=== PATIENT | male | born 1985 | race Hispanic/Latino ===

== ENCOUNTER 2020-04-04 06:07 | Outpatient (CLI) | payer BC, OTHER ==
[2020-04-04 16:10] LABS: #Eosinphils 0.3 thou/uL (0.0-0.7); #Lymphocytes 3.4 thou/uL (1.20-3.40); #Monocytes 0.7 thou/uL (0.11-0.59); #Neutrophils 3.7 thou/uL (1.40-6.50); %Basophils 0.3 % (0.0-1.0); %Eosinophils 3.3 % (0.0-10.0); %Lymphocytes 42.4 % (21.0-51.0); %Monocytes 8.2 % (0.0-10.0); %Neutrophils 45.8 % (42.0-75.0); Hemoglobin 15.2 g/dL (14.0-18.0); Mean Corpuscular HGB CONC 33.3 g/dL (32.0-36.0); Mean Corpuscular Hemoglobin 30.5 pg (27.0-31.0); Mean Corpuscular Volume 91.7 fL (78.0-98.0); Mean Platelet Volume 9.2 fL (7.4-10.4); Platelet Count 269 thou/uL (130-400); RBC Distribution Width 11.8 % (11.5-14.5); Red Blood Cell (RBC) Count 4.97 mill/uL (4.70-6.10); White Blood Cell (WBC) Count 8.1 thou/uL (4.8-10.8)
[2020-04-04 16:39] LABS: Anion Gap 15 mmol/L (10-20); BUN (Urea Nitrogen) 12 mg/dL (8.9-20.6); Calc. Creatinine Clearance 0 mL/min (70-130); Calcium 9.4 mg/dL (7.8-10.44); Carbon Dioxide 23 mmol/L (22-29); Chloride 105 mmol/L (98-107); Estimated GFR-MDRD 86; Glucose 86 mg/dL (70-105); Potassium 4.4 mmol/L (3.5-5.1); Sodium 139 mmol/L (136-145)
[2020-04-05 13:22] LABS: SARS-CoV-2 MS2 Positive; SARS-CoV-2 N Gene Negative; SARS-CoV-2 S Gene Negative; SARS-CoV-2 by NAA Not Detected (NotDetected); SARS-CoV-2 orf1ab Negative
== END 2020-04-04 06:08 | disposition home or self-care (01) ==
LOC: LABBT 06:07
PROVIDERS: ATTEND Specialist
DX: Z01.812 Encounter for preprocedural laboratory examination (principal); Z20.828 Contact with and (suspected) exposure to other viral communicable diseases; K42.9 Umbilical hernia without obstruction or gangrene; K40.90 Unilateral inguinal hernia, without obstruction or gangrene, not specified as recurrent; K59.00 Constipation, unspecified
CPT/HCPCS: 80048; 85025; 87635; U0003

== ENCOUNTER 2020-04-07 07:23 | Day surgery (SDC) | payer BC ==
[2020-04-06 09:28] VITALS: BMI 30.8
[2020-04-07] MEDS ORDERED: Ketorolac Tromethamine 30 MG/ML VIAL ONE (07:51)
[2020-04-07] MEDS ORDERED: Acetaminophen 500 MG TAB ONE (07:51)
[2020-04-07] MEDS ORDERED: Bupivacaine/Epinephrine 0.25% 30 ML VIAL ONE ×2 (08:41→08:42)
[2020-04-07] MEDS ORDERED: Lidocaine 1% w/Epinephrine 1:100K 20 ML VIAL ONE (08:43)
[2020-04-07] MEDS ORDERED: Bupivacaine 0.25% HCL 30 ML VIAL ONE (08:46)
[2020-04-07] MEDS ORDERED: Glycopyrrolate 0.2 MG/ML 5 ML SYRINGE ONE (09:53)
[2020-04-07] MEDS ORDERED: Dexamethasone 20 MG/5 ML VIAL ONE (09:53)
[2020-04-07] MEDS ORDERED: Rocuronium Bromide 10 MG/ML (10ML VIAL) ONE (09:53)
[2020-04-07] MEDS ORDERED: PROPOFOL 200 MG/20 ML VIAL ONE (09:53)
[2020-04-07] MEDS ORDERED: diphenhydrAMINE 50 MG/ML VIAL ONE (09:53)
[2020-04-07] MEDS ORDERED: EPHEDRINE 25 MG/5 ML SYRINGE ONE (09:53)
[2020-04-07] MEDS ORDERED: Ondansetron PF 4 MG/2 ML Vial ONE (09:53)
[2020-04-07] MEDS ORDERED: Fentanyl 250 MCG/5 ML VIAL ONE (10:23)
[2020-04-07] MEDS ORDERED: Levofloxacin 500 mg/D5W 100 ml Premix Bag ONE (11:18)
[2020-04-07] MEDS ORDERED: Promethazine HCl 25 MG/ML VIAL ONE (13:28)
[2020-04-07] MEDS ORDERED: Fentanyl 100 MCG/2 ML VIAL ONE (13:33)
--- NOTE | 2020-04-08 00:18 | OP ---
DATE OF PROCEDURE: 04/07/2020 SERVICE: Urology. Intraoperative consult obtained from Dr. Clemente Olmos. PREOPERATIVE DIAGNOSIS: Inguinal hernia and umbilical hernia. 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 BRIEF HISTORY AND REASON FOR CONSULTATION: Mr. Bai is a 34-year-old male who is currently in the operating room for an inguinal and umbilical hernia repair via robotic approach with Dr. Olmos. He had not endorsed any previous urinary problems or urinary issues. Attempts at placing a Norton catheter at the start of the surgery was met with resistance with blood then coming at the meatus. I was then consulted for further assistance and placement of the catheter. DESCRIPTION OF PROCEDURE: After identification of the patient's band and verification of the patient's identity, a flexible cystoscope was brought in and used to cannulate into the urethra. This was performed up to the level of the bulbar urethra where it was noted the patient had a fairly large false passage. The true lumen was identified nearby and found to be completely stenosed at approximately a 4-5-Polish diameter. An Amplatz Super Stiff wire was able to be passed through the lumen of the stricture and into the bladder. The cystoscope was removed and Teri dilators were used sequentially from 10-Polish up to 20-Polish, passed sequentially over the Super Stiff wire into the bladder. After the 20-Polish dilation, the cystoscope was reintroduced through the urethra alongside the Super Stiff wire and cannulated through the urethra into the prostate and into the bladder. The bladder was grossly unremarkable. The prostate was not very hypertrophic. The false passage was more pushed the side now with the dilation going to the true lumen. The cystoscope was then removed and a 16-Polish [place] tip catheter was placed with ease over the Super Stiff wire into the bladder. The Super Stiff wire was then removed and 10 mL of sterile water placed into the balloon. The catheter was left to gravity drainage. Dr. Olmos then performed his portion of the surgery, which will be dictated separately in his operative report. For my portion of the procedure, complications none. ESTIMATED BLOOD LOSS: Minimal. RETAINED TUBES AND DRAINS: 16-Polish [place] tip catheter to gravity drainage. SPECIMENS: None. DISPOSITION: The patient will need to keep his catheter in for 10-14 days to allow for adequate healing of his urethra. He remains at high risk for recurrent stricture disease. I will handle this as an outpatient after his void trial and we can discuss definitive urethral reconstruction if his stricture recurs. Job ID: [id number]
--- NOTE | 2020-04-08 15:26 | OP ---
DATE OF PROCEDURE: 04/07/2020 PREOPERATIVE DIAGNOSES: Right inguinal hernia, umbilical hernia. POSTOPERATIVE DIAGNOSES: Right inguinal hernia, umbilical hernia with very large cord lipoma and indirect hernia, and urethral stricture. PROCEDURES PERFORMED: Robotic right inguinal hernia repair, umbilical hernia repair with mesh, urological procedure per Dr. Presley Katz dictated separately. INDICATIONS FOR PROCEDURE: The patient is a 34-year-old male. He presented with an enlarging umbilical hernia that was symptomatic. He had a right inguinal hernia on examination. It was decided to repair both of these under the same anesthetic. DESCRIPTION OF OPERATION: Informed consent was obtained. The patient was taken to the operating room, where general anesthesia was obtained with the patient in supine position. Norton catheter placement was attempted, but was found to be impossible and urologic consultation was obtained. Dr. Katz graciously presented immediately and addressed apparent stricture with a cystoscopy, stricture dilatation, and placement of the catheter. The patient was found to have developed a substantial false passage during Norton catheter placement at the location of a significant urethral stricture. After Norton catheter was placed, abdomen was prepped with ChloraPrep and draped in sterile fashion. Local anesthetic was infiltrated using a mixture of 1% lidocaine with epinephrine and 0.25% Marcaine. A transverse supraumbilical incision was created. Dissection was carried through skin and subcutaneous tissue. Dissection was carried down to the umbilical hernia sac. The contents were found to be fatty in nature. I, therefore, dissected down through this into the peritoneal cavity and passed a Veress needle through this. Pneumoperitoneum was established using carbon dioxide up to pressure of 15 mmHg. An 11 mm balloon-tipped trocar port was placed. Robotic camera was passed through this and under direct vision, two additional 8 mm robotic ports were placed at the supraumbilical level on either side of midline. The robot was docked to the 3 ports and the camera, and operation was continued from the robotic console. Attention was turned inferiorly. There was noted to be a minimal peritoneal inversion in the right inguinal area. A transverse incision was created several centimeters above the hernia, and a preperitoneal dissection was carried inferiorly. Medially, the dissection was carried down to the pubic tubercle. Laterally, the iliopubic tract was fully dissected. Within the central portion, I carefully dissected the cord structures. There was a smallish indirect hernia; however, there was a very large cord lipoma. The cord lipoma was fully reduced through the hernia defect. The peritoneum was carefully dissected off the cord structures posteriorly. A large 3DMax mesh patch was obtained and placed in the preperitoneal space, where it was secured to the pubic tubercle and to the anterior abdominal wall with two separate sutures of 2-0 Vicryl. The peritoneum was then closed with a running suture of 3-0 Stratafix. The cord lipoma was partially removed from within the abdomen at the end of the operation. The remainder of it was carefully externalized to the mesh. The lateral ports were removed under direct vision, and pneumoperitoneum was evacuated. Attention was turned to the umbilical hernia. The supraumbilical incision was extended somewhat to allow open dissection. The umbilicus was then dissected off the underlying hernia sac and the fascial defect. The defect was noted to be about 1.5 cm. The fascia was dissected anteriorly and posteriorly to create a preperitoneal plane. A 4.3 cm Ventralex mesh patch was obtained and placed within the preperitoneal space. The tails of the patch were pulled snug against the posterior aspect of the fascia, and the tails were secured to the anterior fascia superiorly and inferiorly with two interrupted sutures of 0 Prolene. The lateral aspects of the defect were closed with interrupted sutures of 0 Prolene as well. The umbilicus was secured down to the fascia with two interrupted sutures of 3-0 Vicryl. The remainder of the wound was closed in layers with 3-0 and 4-0 Monocryl. Dermabond was placed externally. A sterile compression dressing was placed using cotton balls and a Tegaderm. There were no complications during the surgical portion of procedure. Because of the false passage that had been created, a Norton catheter was left in place under the direction of Dr. Katz and the patient will follow up with Dr. Katz as an outpatient. Job ID: [id number]
== END 2020-04-07 15:52 | disposition home or self-care (01) ==
LOC: SDC 07:23
PROVIDERS: ATTEND Specialist
PROC: 0T7D8ZZ Dilation of Urethra, Via Natural or Artificial Opening Endoscopic (ICD-10-PCS; principal; 2020-04-07)
PROC: 0YU54JZ Supplement Right Inguinal Region with Synthetic Substitute, Percutaneous Endoscopic Approach (ICD-10-PCS; principal; 2020-04-07)
PROC: 0WUF0JZ Supplement Abdominal Wall with Synthetic Substitute, Open Approach (ICD-10-PCS; principal; 2020-04-07)
DX: K40.90 Unilateral inguinal hernia, without obstruction or gangrene, not specified as recurrent (principal); K42.9 Umbilical hernia without obstruction or gangrene; N35.912 Unspecified bulbous urethral stricture, male; D17.6 Benign lipomatous neoplasm of spermatic cord; K59.00 Constipation, unspecified
CPT/HCPCS: C1781; J0690; J1100; J1200; J1885; J1956; J2405; J2550; J2704; J3010; S0020

== ENCOUNTER 2020-04-23 19:42 | Observation (INO) | payer BC, OTHER ==
[2020-04-23] MEDS ORDERED: Ondansetron PF 4 MG/2 ML Vial ONE ×2 (20:05→22:56)
[2020-04-23] MEDS ORDERED: cefTRIAXone\\ROCEPHIN 1 GM VIAL ONE (20:05)
[2020-04-23] MEDS ORDERED: Morphine 4 MG/ML VIAL ONE ×2 (20:05→22:45)
[2020-04-23 20:29] LABS: #Basophils 0.1 thou/uL (0.0-0.2); #Eosinphils 0.2 thou/uL (0.0-0.7); #Lymphocytes 3.3 thou/uL (1.20-3.40); #Monocytes 0.8 thou/uL (0.11-0.59); #Neutrophils 7.7 thou/uL (1.40-6.50); %Basophils 0.9 % (0.0-1.0); %Lymphocytes 27.4 % (21.0-51.0); %Monocytes 6.3 % (0.0-10.0); %Neutrophils 63.5 % (42.0-75.0); Hemoglobin 14.5 g/dL (14.0-18.0); Mean Corpuscular HGB CONC 35.7 g/dL (32.0-36.0); Mean Corpuscular Hemoglobin 31.9 pg (27.0-31.0); Mean Corpuscular Volume 89.5 fL (78.0-98.0); Mean Platelet Volume 7.7 fL (7.4-10.4); Platelet Count 338 thou/uL (130-400); RBC Distribution Width 11.6 % (11.5-14.5); Red Blood Cell (RBC) Count 4.52 mill/uL (4.70-6.10); White Blood Cell (WBC) Count 12.1 thou/uL (4.8-10.8)
[2020-04-23 20:46] LABS: ALT (SGPT) 12 U/L (8-55); AST (SGOT) 13 U/L (5-34); Alkaline Phosphatase 68 U/L (40-110); Anion Gap 14 mmol/L (10-20); BUN (Urea Nitrogen) 21 mg/dL (8.9-20.6); Bilirubin, Total 0.3 mg/dL (0.2-1.2); Calc. Creatinine Clearance 0 mL/min (70-130); Calcium 8.8 mg/dL (7.8-10.44); Carbon Dioxide 22 mmol/L (22-29); Chloride 102 mmol/L (98-107); Estimated GFR-MDRD 64; Glucose 89 mg/dL (70-105); Sodium 134 mmol/L (136-145)
--- NOTE | 2020-04-23 21:10 | ULT ---
US Testicular W Doppler History: Pain Comparison: None. Findings: Real-time grayscale, color and spectral analysis of the testicles was performed. The testicular echotexture and vascularity is normal. Small epididymal head cyst on the left. Posterior to left testicle is a fluid collection with peripheral irregular joshua. This fluid collecti on measures up to 8 cm in size. No significant heterogeneity of the fluid itself. Impression: Irregular thick-walled fluid collection posterior to the left testicle measures sequelae of prior infection and resolving abscess. Resorbing hematoma is also possibility.
[2020-04-23 21:47] LABS: Bacteria/HPF None Seen HPF (None Seen); Bilirubin Negative (Negative); Blood, Urine 2+ (Negative); Clarity Clear (Clear); Glucose, Urine (Dipstick) Normal (Negative); Ketone, Urine Negative (Negative); Leukocyte 75 Leu/uL (Negative); Nitrite Negative (Negative); Protein, Urine (Dipstick) 70 mg/dL (Neg-Trace); RBC/HPF 21-50 HPF (0-3); Specific Gravity, Urine 1.031 (1.002-1.036); Squamous Epithelial 0-3 HPF (0-3); Urobilinogen Normal mg/dL (Less than 2); pH, Urine 6.5 (5.0-9.0)
[2020-04-23 21:59] LABS: Sperm/HPF 4+ HPF (None Seen)
[2020-04-24 00:09] VITALS: BMI 31.8
[2020-04-24] MEDS ORDERED: Morphine 4 MG/ML VIAL SLOW IVP PRN (00:22)
[2020-04-24] MEDS ORDERED: Ondansetron PF 4 MG/2 ML Vial IVP PRN ×2 (00:30→11:37)
[2020-04-24] MEDS ORDERED: Ondansetron ODT 4 MG TAB SL PRN (00:30)
[2020-04-24] MEDS: Sodium Chloride 0.9% 1,000 ML IV SCH ×4 (00:40→20:54)
[2020-04-24] MEDS ORDERED: FLU VACC QS2020-21(6MOS UP)/PF 60 MCG/0.5 ML SYRINGE IM ONE (09:00)
[2020-04-24] MEDS ORDERED: Fentanyl 100 MCG/2 ML VIAL SLOW IVP PRN (11:37)
[2020-04-24 12:12] LABS: SARS-CoV-2 MS2 Positive; SARS-CoV-2 N Gene Negative; SARS-CoV-2 S Gene Negative; SARS-CoV-2 by NAA Not Detected (NotDetected); SARS-CoV-2 orf1ab Negative
[2020-04-24 13:16] LABS: #Eosinphils 0.2 thou/uL (0.0-0.7); #Lymphocytes 2.6 thou/uL (1.20-3.40); #Monocytes 0.6 thou/uL (0.11-0.59); #Neutrophils 2.9 thou/uL (1.40-6.50); %Basophils 0.6 % (0.0-1.0); %Lymphocytes 41.1 % (21.0-51.0); %Monocytes 8.8 % (0.0-10.0); %Neutrophils 46.5 % (42.0-75.0); Hemoglobin 13.9 g/dL (14.0-18.0); Mean Corpuscular HGB CONC 35.7 g/dL (32.0-36.0); Mean Corpuscular Hemoglobin 32.4 pg (27.0-31.0); Mean Corpuscular Volume 90.8 fL (78.0-98.0); Mean Platelet Volume 7.5 fL (7.4-10.4); Platelet Count 296 thou/uL (130-400); RBC Distribution Width 11.8 % (11.5-14.5); Red Blood Cell (RBC) Count 4.28 mill/uL (4.70-6.10); White Blood Cell (WBC) Count 6.2 thou/uL (4.8-10.8)
[2020-04-24 13:20] LABS: Hemoglobin A1c 5.4 % (4.0-6.0)
[2020-04-24 13:29] LABS: Anion Gap 11 mmol/L (10-20); BUN (Urea Nitrogen) 13 mg/dL (8.9-20.6); Calc. Creatinine Clearance 154 mL/min (70-130); Calcium 8.8 mg/dL (7.8-10.44); Carbon Dioxide 25 mmol/L (22-29); Chloride 106 mmol/L (98-107); Estimated GFR-MDRD 80; Glucose 84 mg/dL (70-105); Potassium 4.3 mmol/L (3.5-5.1); Sodium 138 mmol/L (136-145)
[2020-04-24] MEDS: cefTRIAXone\\ROCEPHIN 1 GM in Sodium Chloride 0.9% 100 ML IVPB SCH (14:09)
[2020-04-24] MEDS: Acetaminophen 325 MG TAB PO PRN (15:53)
--- NOTE | 2020-04-24 17:02 | HP ---
CHIEF COMPLAINT: Scrotal abscess/hematoma with intractable testicular pain. HISTORY OF PRESENT ILLNESS: The patient is a 34-year-old male who originally underwent a hernia repair on 04/07/[address] Olmos in the process of trying to pass the Norton. There was great difficulty encountered in the operating room such that Dr. Katz was consulted to come in and place a Norton. A urethral stricture was noted with only 5-mm of room for passage, so he dilated the patient's urethra and placed the catheter, and the patient subsequently was discharged home with a Norton in place. He followed up with Dr. Olmos the following week where his concerns for hernia repair were noted to be doing well, but he had a huge scrotal hematoma present with severe discomfort. The patient was referred back to Dr. Katz for care. He was placed on antibiotics and was planning subsequent followup care; however, the pain in the scrotum became unbearable. By the time he came back to the emergency room for evaluation, he was in tears and unable to tolerate the pain any further. He did not have fever, nausea, vomiting, or diarrhea, but Dr. Burgos was consulted to admit the patient for pain management, and urologist on-call was then contacted to provide urological care to the scrotal what appears to be scrotal abscess or hematoma by ultrasound. The ultrasound showed it to be approximately 8 cm in size. PAST MEDICAL HISTORY: Significant for borderline diabetes, hyperlipidemia. PAST SURGICAL HISTORY: He has no other past surgical history other than the aforementioned hernia repair per Dr. Olmos done on 04/07/2020 and then cystoscopy done that same day by Dr. Katz. PSYCHIATRIC HISTORY: None. SOCIAL HISTORY: Denies alcohol or drug use. He does currently smoke, but not very often. He is . ALLERGIES: HE HAS NO KNOWN DRUG ALLERGIES. MEDICATIONS ON ADMISSION: Were recently discontinued antibiotics such as Levaquin. REVIEW OF SYSTEMS: CONSTITUTIONALLY: He denies fever, chills, nausea, or vomiting. HEENT: Denies any lesions or drainage from eyes, ears, nose, or throat. CHEST: Denies dyspnea or cough. CARDIOVASCULAR: Denies palpitations or chest pain. GI: Has had waves of nausea, but no vomiting or diarrhea. : Admits to blood per urethra, but easily passes urine and what would be considered normal amounts. No anal blood. MUSCULOSKELETAL: Denies rashes or lesions. NEUROLOGIC: Has no trouble with mentation. He has had headaches since using the morphine for pain, but aside from that, no trouble with paresthesias or hyperesthesias. PHYSICAL EXAMINATION: At the time of admission, VITAL SIGNS: Blood pressure 111/76, pulse 75, respirations 16, O2 saturation 97% on room air, and he has been afebrile since admission. GENERAL: This is a well-developed, well-nourished, male, who is in mild to moderate testicular distress and pain. HEENT: Normocephalic, atraumatic. Pupils are equal, round, and reactive to light. Extraocular muscles are intact. TMs, nares, and pharynx are clear. NECK: Supple. Trachea midline. No mass. CHEST: Clear to auscultation. HEART: Regular rate and rhythm without murmur. ABDOMEN: Soft, nontender without organomegaly. Well-healed umbilical incisions from hernia repair noted. : Circumcised male with a huge ecchymotic scrotum that is tender to palpation. No palpable fever. RECTAL: Deferred. EXTREMITIES: Without clubbing, cyanosis, or edema. Normal range of motion present. SKIN: Without rashes or lesions aside from the area of the ecchymotic scrotum. NEUROLOGIC: Cranial nerves are intact. Sensory exam is grossly intact. Mental status is at baseline, unable to test gait and cerebellar function at this time. LABORATORY WORK: On admission shows WBCs elevated at 12.2, hemoglobin 14.5, hematocrit 40.5 with platelets at 338. Chemistry; sodium 134, potassium 4.0, chloride 102, CO2 of 22, BUN 21, with a creatinine of 1.29, a GFR 64. Lactic acid on admission 1.8. Liver functions normal. Urinalysis is positive for leukocyte esterase as well as blood and wbcs are 11 to 20. ASSESSMENT: 1. Testicular hematoma/abscess. 2. Intractable testicular pain. 3. Borderline diabetes. 4. Hyperlipidemia. PLAN: Will be pain management. We will continue the Rocephin that was begun in the emergency room. Urology has already been consulted to come see the patient for probable aspiration or open I and D. We will serially re-evaluate him and change his pain management from morphine to fentanyl due to adverse reactions with morphine. Job ID: [id number]
--- NOTE | 2020-04-24 21:18 | CON ---
DATE OF CONSULTATION: 04/24/2020 CHIEF COMPLAINT: 1. Left-sided testicular pain and swelling. 2. Dysuria. HISTORY OF PRESENT ILLNESS: Mr. 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 The patient has a history of a recent umbilical and right inguinal hernia repair performed by Dr. Olmos on 04/07/2020. The patient at the time of surgery had to have a Norton catheter inserted by Dr. Katz due to urethral stricture, which required dilation. The patient had a Norton catheter in place for 7 days; following that, returned to Dr. Katz's office. Later, had the catheter removed and was placed on Levaquin for possible infection due to complaint of testicular pain at that time on the left side. The patient's pain symptoms are contralateral to the side of his hernia repair. The patient states he completed his course of Levaquin on , 04/21/2020 and by 04/23/2020, the patient was having severe left-sided testicular pain and having difficulty walking. He noticed a large amount of swelling associated with his left testis. The patient presented to the emergency department, underwent ER evaluation. The patient was found to be afebrile, and ultrasound was obtained, which I have reviewed and shows a left-sided loculated hydrocele as well as some increased blood flow in the left epididymis to my reading. Right side appears benign. Both testes are free of evidence of tumor, mass, or other abnormality. There is no increased perfusion in either the left or right testis. REVIEW OF SYSTEMS: Negative x12 systems except for is noted. Testicular pain, swelling of left hemiscrotum and pain in the left epididymis. The patient has also had a slow urinary stream, which required recent dilation of the patient's known urethral stricture. PAST MEDICAL HISTORY: 1. Diabetes mellitus. 2. Borderline diabetic. 3. Hyperlipidemia. PAST SURGICAL HISTORY: The patient had a laparoscopic umbilical and right inguinal hernia repair on 04/07/2020. 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 No drug use. He is a current smoker, but rarely. CURRENT MEDICATIONS: None except for recent course of Levaquin. KNOWN ALLERGIES: No known drug allergies. PHYSICAL EXAMINATION: VITAL SIGNS: The patient has been afebrile since hospital admission. Current temperature is 97.5, pulse is 83, respirations 16, room air O2 saturations 94%, and blood pressure is 103/71. GENERAL: This is a pleasant, awake, alert, [place]ian-speaking male in no apparent distress. HEAD, EYES, EARS, NOSE, AND THROAT: Extraocular movements are intact. Sclerae are anicteric. Oropharynx is clear. NECK: Supple. LUNGS: Clear to auscultation bilaterally. CARDIAC: Regular rate and rhythm. ABDOMEN: Soft and nontender. There is an umbilical incision as well as additional laparoscopic incisions which are healing appropriately. Now, these appear to be infected. GENITOURINARY: The right hemiscrotum has not swollen or enlarged. There is some slight discoloration of the scrotal skin which would be expected after previous laparoscopic surgery. Phallus is without lesion. Urethral meatus appears adequate. He has no lesions along the course of the shaft of the penis. The left hemiscrotum is swollen. The left hemiscrotum appears tender to examination. Transillumination does show proper transillumination suggesting at least a portion of the patient's loculated hydrocele is a clear fluid like. LABORATORY STUDIES: The patient's white count at admission was marginally elevated at 12.1, now improved to 6.2 today. Hematocrit today is 38.9 with a hemoglobin of 13.9. Yesterday, there was an elevation of the patient's absolute neutrophil count 7700, this was improved to 2900, which is in the normal range. Microbiology; there is no growth at 12 hours in the patient's urine culture. Culture results remain pending. ASSESSMENT AND PLAN: 1. Left-sided reactive hydrocele with left epididymitis. The patient appears to be responding to intravenous Rocephin. There is a good chance that his urine will be covered by oral cephalosporin based on that finding that he is improved with 24 hours worth of Rocephin. 2. Urethral stricture disease. The patient was established with Dr. Katz. He has urethral stricture disease. The patient does not have incomplete bladder emptying at the present time based on ER evaluation with ultrasound showing less than 50 mL of retained urine postvoid. The patient and I discussed appropriate followup for early onset of obstructive voiding symptoms. He will follow up with Dr. Katz regarding that. 3. Pain symptoms markedly improved after 24 hours worth of antibiotics. The patient to be appropriate for discharge home probably within less than 24 hours once appropriate culture results are available for him. Consideration of cefprozil or Keflex based on antibiotic sensitivity. Job ID: [id number]
[2020-04-25 05:41] LABS: #Eosinphils 0.3 thou/uL (0.0-0.7); #Lymphocytes 2.6 thou/uL (1.20-3.40); #Monocytes 0.5 thou/uL (0.11-0.59); #Neutrophils 2.4 thou/uL (1.40-6.50); %Basophils 0.7 % (0.0-1.0); %Eosinophils 5.7 % (0.0-10.0); %Lymphocytes 44.5 % (21.0-51.0); %Monocytes 8.4 % (0.0-10.0); %Neutrophils 40.7 % (42.0-75.0); Hemoglobin 13.4 g/dL (14.0-18.0); Mean Corpuscular Hemoglobin 31.1 pg (27.0-31.0); Mean Corpuscular Volume 91.5 fL (78.0-98.0); Platelet Count 299 thou/uL (130-400); RBC Distribution Width 11.8 % (11.5-14.5); Red Blood Cell (RBC) Count 4.32 mill/uL (4.70-6.10); White Blood Cell (WBC) Count 5.8 thou/uL (4.8-10.8)
[2020-04-25 05:54] LABS: Anion Gap 9 mmol/L (10-20); BUN (Urea Nitrogen) 12 mg/dL (8.9-20.6); Calc. Creatinine Clearance 161 mL/min (70-130); Calcium 8.7 mg/dL (7.8-10.44); Carbon Dioxide 27 mmol/L (22-29); Cardiac Risk 3.8 (Less than 4.5); Chloride 107 mmol/L (98-107); Cholesterol 150 mg/dl (< 200 Desired); Estimated GFR-MDRD 85; Glucose 93 mg/dL (70-105); HDL Cholesterol 39 mg/dL (>60 Neg Risk); LDL Cholesterol, Calculated 94 mg/dL; Potassium 4.3 mmol/L (3.5-5.1); Sodium 139 mmol/L (136-145); Triglycerides 84 mg/dL (Less than 150)
[2020-04-25] MEDS: Sodium Chloride 0.9% 1,000 ML IV SCH (06:06)
[2020-04-25] MEDS ORDERED: Acetaminophen/Codeine 30-300mg Tablet PO PRN (08:37)
[2020-04-25] MEDS: cefTRIAXone\\ROCEPHIN 1 GM in Sodium Chloride 0.9% 100 ML IVPB SCH (12:36)
[2020-04-25] MEDS: Acetaminophen 325 MG TAB PO PRN (13:57)
[2020-04-25 19:54] VITALS: BP 113/72; TEMP 98.2
== END 2020-04-25 19:50 | disposition home or self-care (01) ==
LOC: ERS 19:42 → SURG B 23:52
PROVIDERS: ADMIT Specialist; ATTEND Specialist
DX: N50.3 Cyst of epididymis (principal); N43.3 Hydrocele, unspecified; N35.919 Unspecified urethral stricture, male, unspecified site; E11.9 Type 2 diabetes mellitus without complications; E78.5 Hyperlipidemia, unspecified; F17.200 Nicotine dependence, unspecified, uncomplicated; Z20.828 Contact with and (suspected) exposure to other viral communicable diseases
CPT/HCPCS: 36415; 36416; 76870; 80048; 80053; 80061; 81003; 81015; 83036; 83605; 85025; 87040; 87086; 87635; 93976; 96361; 96365; 96367; 96375; 96376; G0378; J0696; J1956; J2270; J2405; J3010; J3490; U0003

== ENCOUNTER 2020-05-22 01:28 | Emergency (ER) | payer BC | END 2020-05-22 02:18 | disposition home or self-care (01) | LOC: ERS 01:28 | DX: U07.1 COVID-19 (principal); F17.290 Nicotine dependence, other tobacco product, uncomplicated | CPT/HCPCS: 99283 ==

== ENCOUNTER 2020-06-03 09:35 | Observation (INO) | payer BC ==
[2020-06-03] MEDS ORDERED: Ketorolac Tromethamine 30 MG/ML VIAL ONE (10:33)
[2020-06-03 11:11] LABS: #Basophils 0.1 thou/uL (0.0-0.2); #Lymphocytes 1.7 thou/uL (1.20-3.40); #Monocytes 0.7 thou/uL (0.11-0.59); #Neutrophils 6.8 thou/uL (1.40-6.50); %Basophils 0.8 % (0.0-1.0); %Eosinophils 0.5 % (0.0-10.0); %Lymphocytes 18.6 % (21.0-51.0); %Monocytes 7.8 % (0.0-10.0); %Neutrophils 72.4 % (42.0-75.0); Hemoglobin 13.7 g/dL (14.0-18.0); Mean Corpuscular HGB CONC 33.5 g/dL (32.0-36.0); Mean Corpuscular Hemoglobin 29.8 pg (27.0-31.0); Mean Corpuscular Volume 89.2 fL (78.0-98.0); Mean Platelet Volume 7.5 fL (7.4-10.4); Platelet Count 411 thou/uL (130-400); RBC Distribution Width 11.8 % (11.5-14.5); Red Blood Cell (RBC) Count 4.59 mill/uL (4.70-6.10); White Blood Cell (WBC) Count 9.4 thou/uL (4.8-10.8)
--- NOTE | 2020-06-03 11:29 | ULT ---
Exam: Testicular ultrasound HISTORY: Scrotal pain and swelling. COMPARISON: 04/23/2020 TECHNIQUE: Sagittal and transverse imaging of the left and right hemiscrotum are performed. Testicula r Doppler is performed with grayscale, color-flow, Doppler imaging and spectral waveform analysis. FINDINGS: Right hemiscrotum: Testicle: Homogeneous echotexture. No intratesticular masses. Right testicle measurements: 1.7 x 4.1 x 2.9 Right epididymis: Normal echotexture. Right epididymis measurements: 0.9 x 0.7 cm Hydrocele: None Left hemiscrotum: Left testicle: Homogeneous echotexture. No intratesticular masses. Left testicle measurements: 3.6 x 3.9 x 1.9 cm Left epididymis: Small epididymal cysts measuring 0.6 x 0.5 x 0.6 cm. Left epididymis measurements:1.6 x 1.0 cm Hydrocele: None Scrotal wall: Nonvascular hypoechoic focus in the scrotum measuring 9.7 x 8.3 x 9.0 cm. Complex fluid collection is favored. Grossly, this collection was more anechoic with thick irregular joshua. Currently, this lesion is better defined. Previously, this collection measured up to 8 cm in maximum dimension. Testicular Doppler: There is symmetric vascular flow to the left and right testicle. IMPRESSION: 1. Incidental left epididymal cysts. 2. Appropriate echotexture and vascular flow to the testicles 3. Previous noted irregular anechoic focus has become more well-defined. Correlate, this lesion is hy poechoic and avascular. A complex large fluid collection is suspected. Urological surgical consultation is recommended for further evaluation.
[2020-06-03 11:32] LABS: ALT (SGPT) 32 U/L (8-55); AST (SGOT) 20 U/L (5-34); Albumin 3.7 g/dL (3.5-5.0); Alkaline Phosphatase 80 U/L (40-110); Anion Gap 14 mmol/L (10-20); BUN (Urea Nitrogen) 13 mg/dL (8.9-20.6); Bilirubin, Total 0.5 mg/dL (0.2-1.2); Calc. Creatinine Clearance 0 mL/min (70-130); Calcium 9.6 mg/dL (7.8-10.44); Carbon Dioxide 23 mmol/L (22-29); Chloride 102 mmol/L (98-107); Estimated GFR-MDRD Greater than 90; Globulin 4.1 g/dL (2.4-3.5); Glucose 84 mg/dL (70-105); Potassium 4.4 mmol/L (3.5-5.1); Protein, Total 7.8 g/dL (6.0-8.3); Sodium 135 mmol/L (136-145)
[2020-06-03 11:44] LABS: Bacteria/HPF None Seen HPF (None Seen); Bilirubin Negative (Negative); Blood, Urine 1+ (Negative); Clarity Clear (Clear); Glucose, Urine (Dipstick) Normal (Negative); Ketone, Urine Negative (Negative); Leukocyte Negative Leu/uL (Negative); Nitrite Negative (Negative); Protein, Urine (Dipstick) 20 mg/dL (Neg-Trace); Specific Gravity, Urine 1.027 (1.002-1.036); Squamous Epithelial 0-3 HPF (0-3); Urobilinogen Normal mg/dL (Less than 2); WBC/HPF 0-3 HPF (0-3); pH, Urine 6.5 (5.0-9.0)
[2020-06-03 14:27] LABS: SARS-CoV-2 NAA Rapid Test DETECTED (NotDetected)
[2020-06-03] MEDS ORDERED: Morphine 4 MG/ML VIAL ONE (14:41)
[2020-06-03] MEDS ORDERED: Ondansetron PF 4 MG/2 ML Vial ONE ×2 (14:41→15:53)
[2020-06-03] MEDS ORDERED: Ondansetron PF 4 MG/2 ML Vial IVP PRN (16:36)
[2020-06-03] MEDS ORDERED: diphenhydrAMINE 25 MG CAP PO PRN (16:36)
[2020-06-03] MEDS ORDERED: Morphine 4 MG/ML VIAL SLOW IVP PRN (16:36)
[2020-06-03] MEDS ORDERED: Morphine 2 MG/ML VIAL SLOW IVP PRN (16:36)
[2020-06-03] MEDS ORDERED: Mag-Al 1200 mg/1200 mg/30 ML UDCUP PO PRN (16:36)
[2020-06-03] MEDS ORDERED: Bisacodyl 10 MG SUPP PR PRN (16:36)
[2020-06-03] MEDS ORDERED: HYDROcodone/Acetaminophen 7.5/325 mg Tablet PO PRN (16:36)
[2020-06-03] MEDS ORDERED: Vancomycin 1 GM in Premix Bag 1 BAG IVPB SCH ×2 (16:45→17:25)
[2020-06-03] MEDS: HYDROcodone/Acetaminophen 7.5/325 mg Tablet PO PRN (19:22)
[2020-06-03] MEDS: Docusate 100 MG CAP PO SCH (19:23)
[2020-06-03 19:50] VITALS: BMI 30.7
--- NOTE | 2020-06-03 20:44 | HP ---
REASON FOR ADMISSION: Scrotal abscess and scrotal pain. CHIEF COMPLAINT: "My pain is so bad down in the scrotum." HISTORY OF PRESENT ILLNESS: Mr. Bai is a 34-year-old male who is previously known to me for history of urethral stricture and recurrent scrotal and epididymal infections. He underwent a robotic hernia repair with Dr. Olmos in early April. At that time, I was consulted for assistance with urethral Norton placement, at which time they discovered that he had a fairly significant bulbomembranous urethral stricture which was dilated. The patient did have a false passage at that time. The patient kept the catheter in for a period of time and then subsequently able to pass a void trial. Unfortunately, he did develop epididymitis, which was treated with a round of antibiotics. He improved, but after course of sexual activity, had another round of epididymitis, which was then treated with antibiotics again. He again had improvement and was doing okay for a period of time until 2 to 3 days ago when the scrotum started to become red and swollen. He tried to self-medicate at home by taking [id number] pain medications and then ultimately hydrocodone. When the patient became more painful and more swollen, he eventually presented back to the emergency room with reported fevers up to 101 and severe scrotal pain, which was no longer controlled by his oral pain medication regimen at home. On my discussion with the patient, he reports that his urination has decreased a little bit in terms of stream quality, but he is still urinating better. His bedwetting accidents have stopped. He does feel his urgency and frequency have improved overall. He is not sure whether his stricture has come back. He has not had any significant hematuria. He reports he is not having incontinence. He is having significant malaise and again fevers up to 101 with chills. He does not report any cough or respiratory distress. Of note, he did have a rapid COVID test done in the ER, which came back positive. He also had a scrotal ultrasound which demonstrates a large fluid collection within the scrotal wall, but relatively benign and normal-appearing epididymis with small epididymal cyst. ALLERGIES: NONE. HOME MEDICATIONS: 1. Advil 200 mg to 400 mg p.o. t.i.d. p.r.n. scrotal discomfort. 2. [place] 7.5/325 mg one tablet every 4 hours as needed for pain. 3. Levofloxacin 500 mg p.o. daily x7 days. PAST MEDICAL HISTORY: 1. Recurrent sinusitis. 2. Umbilical hernia. 3. Inguinal hernia. 4. Bulbar urethral stricture. SURGICAL HISTORY: 1. Umbilical hernia repair with right inguinal robotic hernia repair. 2. Urethral dilation at the time of his inguinal hernia repair. FAMILY HISTORY: Noncontributory to patient's current problems. SOCIAL HISTORY: The patient is a former smoker, but quit. He is . He denies alcohol abuse, illicit drug use. Currently working as a [employer]. REVIEW OF SYSTEMS: 12-point review of systems reviewed with the patient and negative other than what was commented on the HPI. PHYSICAL EXAMINATION: VITALS: Temperature 99.8, heart rate 87, blood pressure 131/72, saturations 96% on room air, respiratory rate 16. GENERAL: The patient appears extremely uncomfortable. He is in a lot of pain, but answering questions appropriately. Well nourished, well developed, appears stated age. HEENT: Normocephalic, atraumatic. Pupils are symmetric and round. Sclerae nonicteric. Trachea midline. Moist mucous membranes. CARDIOVASCULAR: Regular rate and rhythm. Normal S1 and S2. Symmetric pulses. RESPIRATORY: No cough. No wheezing. Clear anteriorly. Nonlabored breathing currently. ABDOMEN: Soft, nontender, nondistended. Positive bowel sounds. No organomegaly. Prior hernia repairs appear well healed without recurrence. Incisions all fully healed. GENITOURINARY: Patient is uncircumcised. Penis is nonfocal. No lesions. Scrotum is extremely edematous, erythematous, and warm to the touch. It is extremely tender to palpation. There is a large left-sided fluid collection which appears to be coming to ahead on the left side of the scrotum. The right side and testicle appear normal. ILANA is deferred at this time. EXTREMITIES: No clubbing, cyanosis, or edema. MUSCULOSKELETAL: No joint deformities or joint erythema noted. Full range of motion. NEUROLOGIC: Cranial nerves 2-12 grossly intact. No focal or sensory motor deficits identified. SKIN: Warm and dry. No rashes or lesions. PSYCHIATRIC: Alert and oriented x3. Appropriate mood and affect. LABORATORY EVALUATION: Full set of labs are in the [facility] system which I have reviewed. Of note, the patient's white count is 9.4, hemoglobin 13.7. Creatinine is 0.95. Urinalysis demonstrates 1+ blood with 7 to 10 rbc's. COVID rapid PCR test is positive. I have reviewed the images myself. Scrotal ultrasound from June 03 demonstrates a normal right testicle and epididymis without hydrocele. There is a left large hyperechoic, nonvascular fluid collection measuring 9.7 x 8.3 cm in the scrotal wall. The left epididymis appears normal in size with a small epididymal cyst. The left testicle and right testicle both have good blood flow and normal echotexture. ASSESSMENT AND PLAN: A 34-year-old male with positive COVID testing with a scrotal wall abscess, which apparently has progressed to the point where this is no longer capable of being treated as an outpatient. He has failed outpatient antibiotic therapy with levofloxacin. He does not appear to have any testicular epididymal problems, but this may have tracked down through the Rhea's fascia or Colles fascia from a potential urethral extravasation into the scrotum, although this is not entirely clear. I am not sure if he has his urethral stricture back again. I would recommend that we perform a cystoscopy on this patient at the same time of doing a scrotal I and D. I talked about this doing at the patient's bedside, but due to his severe pain already, he is reluctant to allow this at bedside and also if he is in excruciating pain and if he is COVID positive, he may spread more virus by yelling out and screaming and not keeping his mask on. I have talked with Anesthesia and they elected to put him in a positive pressure room and perform this under anesthesia either as a spinal block or with LMA. We will then perform a scrotal I and D and a cystoscopy if there is a dense urethral stricture present. I have talked to the patient about doing an SP tube, which he is in agreement with. I would recommend that he stay in the hospital postoperatively for wound care as well as pain control and then once he is adequately treated for his abscess, I think he can be discharged home. Obviously, given his COVID positive status, if his respiratory status declines and the patient becomes hypoxic or short of breath, he may need to re-present to the hospital for management of his pulmonary function. From my standpoint, I will have the patient return to the office, but teach him wound care. I would like to try to delay at least 2 weeks to see if his COVID status will clear by the time I see him again. Obviously if necessary, I can see him sooner if the need arises. I went over the ID with the patient including risks and benefits; risks, which include worsening infection, damage to the testicle or need for further surgeries as well as bleeding. He understands these risks and wishes to proceed forward. PLAN: 1. Observation for scrotal infection and pain control. 2. To OR for I and D. 3. Respiratory precautions. 4. The patient is receiving Rocephin. Would recommend adding gram-positive coverage with vancomycin. 5. We will take cultures in the hospital and probably discharge once cultures are finalized. 6. We will consult Medicine regarding COVID positive status assuming patient's respiratory status declines. Otherwise, I will limit the number of consults on this patient if his respiratory function remains stable to try and minimize exposure to other staff. Job ID: [id number]
[2020-06-03] MEDS: Vancomycin 1.5 GRAM/300 ML BAG 1.5 GM in Premix Bag 1 BAG IVPB SCH (22:19)
[2020-06-04] MEDS: Vancomycin 1.5 GRAM/300 ML BAG 1.5 GM in Premix Bag 1 BAG IVPB SCH ×4 (05:00→21:00)
[2020-06-04] MEDS: HYDROcodone/Acetaminophen 7.5/325 mg Tablet PO PRN ×3 (05:39→20:38)
[2020-06-04] MEDS ORDERED: Fentanyl 100 MCG/2 ML VIAL ONE ×2 (07:42→09:36)
[2020-06-04] MEDS ORDERED: Promethazine HCl 25 MG/ML VIAL IM PRN ×2 (07:54→09:27)
[2020-06-04] MEDS ORDERED: Ondansetron HCl/PF 4 MG/2 ML Vial IVP PRN ×2 (07:54→09:27)
[2020-06-04] MEDS ORDERED: Promethazine HCl 25 MG/ML VIAL SLOW IVP PRN ×2 (07:54→09:27)
[2020-06-04] MEDS ORDERED: Vancomycin 1 GM in Premix Bag 1 BAG IVPB SCH (09:00)
[2020-06-04] MEDS ORDERED: FLU VACC QS2020-21(6MOS UP)/PF 60 MCG/0.5 ML SYRINGE IM ONE (09:00)
[2020-06-04] MEDS ORDERED: HYDROmorphone 2 MG/ML VIAL SLOW IVP PRN (09:27)
[2020-06-04] MEDS: Docusate 100 MG CAP PO SCH ×2 (10:25→20:24)
--- NOTE | 2020-06-04 11:06 | PRG ---
DATE OF SERVICE: 06/04/2020 SUBJECTIVE: The patient states that he had a relatively rough night. He had a lot of pain, but otherwise was doing okay. He continues to have significant pain in the scrotum, but did not have any fevers. He denies any coughing at the current time. His COVID test was positive yesterday. OBJECTIVE: VITAL SIGNS: Temperature 98.2, pulse 92, respirations 18, blood pressure 115/88, saturation 96% on room air. GENERAL: No apparent distress, communicative, alert. CARDIOVASCULAR: Regular rate and rhythm. ABDOMEN: Soft, nontender, nondistended. : Significantly erythematous scrotum with large fluid collection. Both testes appear palpably normal. Uncircumcised penis is otherwise unremarkable. EXTREMITIES: No edema. LABORATORY EVALUATION: There are no new labs to review today. ASSESSMENT AND PLAN: A 34-year-old male with COVID positive status with large, what appears to be scrotal abscess as well as a history of urethral stricture with possible recurrence. Planning cystoscopy today with I and D of scrotal abscess. Risks and benefits had previously been discussed. He did wish to proceed forward. We will go to the operating room and drain the abscess, pack the area as well as plan a cystoscopy to evaluate for recurrence of a stricture. If he does have a stricture recurrence, we will plan for an SP tube placement which he understands. I will continue to follow the patient postoperatively. Job ID: [id number]
--- NOTE | 2020-06-04 11:28 | OP ---
DATE OF PROCEDURE: 06/04/2020 SERVICE: Urology. PREOPERATIVE DIAGNOSES: Left scrotal abscess and urethral stricture. POSTOPERATIVE DIAGNOSES: Left infected hydrocele and urethral stricture, which is mostly patent with false passage. PROCEDURE PERFORMED: Cystoscopy with incision and drainage of left infected hydrocele. INDICATION FOR PROCEDURE: Mr. Bai is a 34-year-old male, who recently tested positive for COVID. He was having fevers and a significantly enlarged erythematous and painful scrotum. I had suspected a scrotal abscess and recommended drainage. An ultrasound did demonstrate a very large fluid collection within the scrotal wall. Risks and benefits were discussed and he has agreed to proceed forward. I did tell him also we would perform a cystoscopy since he was asleep to check for urethral stricture recurrence and if necessary place in an SP tube, which he was in agreement with. DESCRIPTION OF PROCEDURE: After identification of armband and verification of consent, the patient was brought back to the operating room under COVID precautions and restrictions. Minimal staff was kept in the room during intubation. The patient was then prepped and draped in the usual sterile fashion. After appropriate time-out, a lubricated 22-[place] rigid cystoscope was introduced per urethra into the bladder. In the urethra, there was a definite false passage noted at approximately 7 o'clock, which appeared to be not completely closed, but may be a pinhole opening, which may track into the scrotal space, which is possibly how the patient developed scrotal wall abscess or infection. The true lumen was widely patent and appears to go into the bladder without problems. Cystoscopy was performed and inspection into the bladder was performed as well. The bladder appears unremarkable without problems. Again, the stricture was not entirely concerning, but the patient does have a false passage. The cystoscope was then removed. I do not feel the patient needed an SP tube as he is not in urinary retention, but just as a false passage, blind placement of a Norton catheter should not be attempted on this individual without a wire to guide placement. Once the cystoscope was removed, the scrotum was inspected. The testes could be palpated bilaterally. The left testicle was on the superior anterior aspect of the scrotum, with right testicle in its normal orthotopic location. There was a large distending bulge on the inferior aspect of the scrotum, which initially I had suspected with the scrotal wall abscess. However, on careful inspection, this did appear to be deeper than the scrotal wall. An incision was made with a 15 blade through the scrotal skin on the inferior aspect of the scrotum. Dissection was carried down with Bovie electrocautery and Metzenbaum scissors through the dartos and external spermatic fascia. Dissection was carried down until the tunica vaginalis could be identified indicating this was indeed actually a hydrocele and not a scrotal wall abscess. The tissues were severely inflamed and fused making a hydrocelectomy almost impossible. Given the severity of the infection, I did feel it will be best to just go ahead and open the hydrocele and drain the cavity rather than attempting to perform an adequate hydrocelectomy at this time. The hydrocele sac was open and there was immediate tejada of approximately 200 to 300 mL of extremely purulent yellowish cloudy urine with mild odor indicating likely purulent infected hydrocele. The hydrocele cavity was then washed out thoroughly with irrigation until appeared clean inside the cavities extremely inflamed and will likely sclerose down with adequate packing and wound care. There was a bulge from the patient's right side of his spermatic fascia or tunica vaginalis bulging from the right side into the field. Therefore, the spermatic fascias were sewn to the dartos to exclude the right compartment from the left infected field using a 2-0 Vicryl in a running fashion. Once the hydrocele space was thoroughly evacuated and bleeding appeared to be minimal, iodoform gauze was used to pack into the hydrocele cavity. The wound was left open. The patient was then taken out of positioning, had dressing applied on the scrotum, was awakened and taken to PACU for recovery in stable condition. COMPLICATIONS: None. ESTIMATED BLOOD LOSS: Minimal. RETAINED TUBES AND DRAINS: None. PACKIN-inch iodoform gauze in the scrotum. DISPOSITION: The patient will be kept in the hospital overnight. We will plan wound care overnight with dressing changes to be performed once a day. If he will need to be instructed how to perform these dressing changes at home and probably can be discharged, even though he has COVID positive status, he does not meet requirements for inpatient monitoring secondary to respiratory compromise or COVID syndrome. I do feel that it would be safest for staff and the patient to be isolated and quarantine at home. However, if he does have decline in pulmonary function or worsening of scrotal infection, he will need to represent to the hospital. Job ID: [id number]
[2020-06-04] MEDS ORDERED: PROPOFOL 200 MG/20 ML VIAL ONE (11:56)
[2020-06-04] MEDS ORDERED: Lidocaine 1% PF 5 ML VIAL ONE (11:56)
[2020-06-04] MEDS ORDERED: Succinylcholine 200 MG/10 ml SYRINGE FS ONE (11:56)
[2020-06-04] MEDS ORDERED: Dexamethasone 20 MG/5 ML VIAL ONE (11:56)
[2020-06-04] MEDS ORDERED: Ondansetron PF 4 MG/2 ML Vial ONE (11:56)
[2020-06-04] MEDS: cefTRIAXone\\ROCEPHIN 1 GM in Sodium Chloride 0.9% 100 ML IVPB SCH (17:02)
[2020-06-05] MEDS: Docusate 100 MG CAP PO SCH (09:00)
[2020-06-05] MEDS: Vancomycin 1.5 GRAM/300 ML BAG 1.5 GM in Premix Bag 1 BAG IVPB SCH ×3 (09:07→15:48)
[2020-06-05] MEDS: HYDROcodone/Acetaminophen 7.5/325 mg Tablet PO PRN ×2 (09:12→14:46)
--- NOTE | 2020-06-05 14:39 | PRG ---
DATE OF SERVICE: 06/05/2020 SUBJECTIVE: The patient states he is feeling a lot better today. He still has a lot of soreness down below, but otherwise denies severe pelvic pain or scrotal pain like he did at presentation to the emergency room. He has undergone an open hydrocele drainage with purulent fluid removed. He had been packed with iodoform gauze. This has not yet been changed. OBJECTIVE: VITAL SIGNS: Temperature 97.8, pulse 76, respirations 18, blood pressure 120/82, saturation 96% on room air. GENERAL: No apparent distress, communicative, alert. CARDIOVASCULAR: Regular rate and rhythm. ABDOMEN: Soft, nontender, nondistended. No suprapubic tenderness. : Scrotum is significantly smaller and more symmetric. There is still moderate amount of scrotal wall edema and induration of the left scrotal wall around the site of the incision. The testes appear normal bilaterally without significant induration or tenderness. EXTREMITIES: No significant edema. LABORATORY EVALUATION: There are no new labs to review today. Cultures from swab taken intraoperatively are not demonstrating any evidence of growth of bacteria, but just showing lots of white cells. ASSESSMENT AND PLAN: A 34-year-old male with urethral stricture, which was dilated and appears to be patent with a false passage probably into the scrotum, which resulted in an infected hydrocele versus urinoma. This has now been drained and should subsequently heal. I would recommend iodoform gauze changes daily. I have gone over wound care instructions with the patient in detail as well as how to change the gauze and showering instructions. He should not bathe or submerge under water. He needs to continue his light activity and with restrictions and usage of a jockstrap. I will plan to see him in approximately 2 weeks, once he is no longer contagious with COVID. At which point, we will perform a cystoscopy to ensure that his urethral false passage is healing, and his wound has significantly healed. His will be at bedside today for teaching and instruction on how to perform the outer formed gauze changes. Job ID: [id number]
--- NOTE | 2020-06-05 16:45 | DIS ---
DATE OF ADMISSION: 06/03/2020 DATE OF DISCHARGE: 06/05/2020 ADMITTING DIAGNOSIS: Left scrotal abscess. DISCHARGE DIAGNOSIS: Left scrotal fluid collection versus hydrocele versus urinoma. PROCEDURE PERFORMED: Incision and drainage of large scrotal wall infected fluid collection along with cystoscopy. BRIEF HISTORY: Mr. Bai is a 34-year-old male, with a history of an inguinal hernia repair with umbilical hernia repair, at which time he had a false passage created secondary to urethral stricture disease. His stricture was dilated and the patient ultimately did well from a urethral dilation standpoint. However, he has had multiple episodes of epididymitis, now subsequently, a large fluid collection within the scrotum. His COVID test ended up coming back positive, although he was originally diagnosed with COVID on May 12. He was admitted to the hospital due to fevers and infection most likely occurring from the scrotal infection. HOSPITAL COURSE: After surgery (please see operative note for details), patient was kept in the hospital for postop recovery. He had an iodoform gauze packing in the scrotum to help with mechanical debridement and maintaining patency of the cavity, so would not reform into an infected abscess. On postop day 1, patient states he felt remarkably better. His pain levels had decreased after drainage. He did not spike any more fevers, indicating that he likely was not having fevers from COVID, but likely from the infected scrotum. He had received wound care teaching on how to perform dressing change with presence of his . Patient's culture grew out nothing but did show lots of white cells and red cells. He was on vancomycin and ceftriaxone while in the hospital. He had been taking levofloxacin prior to coming into the hospital and I will change this to Bactrim DS twice a day after discharge to cover both skin and genitourinary bacteria. He was deemed stable for discharge and sent home after wound care teaching. DISPOSITION: DC to home. DISCHARGE CONDITION: Good. DISCHARGE MEDICATIONS: Patient will be given another prescription for hydrocodone as well as Colace. He will discontinue his levofloxacin and start him on Bactrim DS one tab p.o. b.i.d. FOLLOWUP: Already scheduled with me in approximately 2 weeks, at which point he should no longer be contagious with COVID. We will perform a cystoscopy and reassess his wound care. He will need to continue his dressing changes with wound care, iodoform changes daily. I have gone over all of these discharge instructions with him. Job ID: [id number]
[2020-06-05 18:31] VITALS: BP 115/78; TEMP 98.5
[2020-06-05] MEDS: cefTRIAXone\\ROCEPHIN 1 GM in Sodium Chloride 0.9% 100 ML IVPB SCH (18:59)
== END 2020-06-05 19:20 | disposition home or self-care (01) ==
LOC: ERS 09:35 → T4-A 12:35
PROVIDERS: ADMIT Urology; ATTEND Urology
PROC: 0V950ZZ Drainage of Scrotum, Open Approach (ICD-10-PCS; principal; 2020-06-04)
PROC: 0TJB8ZZ Inspection of Bladder, Via Natural or Artificial Opening Endoscopic (ICD-10-PCS; 2020-06-04)
DX: N43.1 Infected hydrocele (principal); N49.2 Inflammatory disorders of scrotum; N35.912 Unspecified bulbous urethral stricture, male; N36.5 Urethral false passage; U07.1 COVID-19; N50.3 Cyst of epididymis; E11.9 Type 2 diabetes mellitus without complications; E78.5 Hyperlipidemia, unspecified; Z87.891 Personal history of nicotine dependence; Z79.2 Long term (current) use of antibiotics
CPT/HCPCS: 36415; 76870; 80053; 80202; 81003; 81015; 83605; 85025; 87040; 87070; 87086; 87205; 90471; 90662; 93976; 96365; 96375; 96376; G0008; G0378; J0696; J1100; J1885; J2270; J2405; J2704; J3010; J3370; J3490; U0002

== ENCOUNTER 2020-08-02 07:02 | Day surgery (SDC) | payer BC ==
[2020-07-29 13:36] VITALS: BMI 32.3
[2020-08-02] MEDS ORDERED: Iothalamate Meglumine 60% 50 ML VIAL FS ONE (08:15)
[2020-08-02] MEDS ORDERED: Midazolam HCl 2 mg/2 ml Vial ONE ×2 (08:19→08:22)
[2020-08-02] MEDS ORDERED: Fentanyl 100 MCG/2 ML VIAL ONE ×3 (08:22→09:54)
[2020-08-02] MEDS ORDERED: Dexamethasone 20 MG/5 ML VIAL ONE (08:55)
[2020-08-02] MEDS ORDERED: Ketorolac Tromethamine 30 MG/ML VIAL ONE ×2 (08:55→10:05)
[2020-08-02] MEDS ORDERED: Ondansetron PF 4 MG/2 ML Vial ONE (08:55)
[2020-08-02] MEDS ORDERED: Lidocaine 1% PF 5 ML VIAL ONE (08:55)
[2020-08-02] MEDS ORDERED: PROPOFOL 200 MG/20 ML VIAL ONE (08:55)
[2020-08-02] MEDS ORDERED: Bupivacaine 0.25% HCL 30 ML VIAL ONE (09:00)
--- NOTE | 2020-08-02 09:35 | RAD ---
EXAM: XR IVP Retrograde PROVIDED CLINICAL HISTORY: Urethrogram. COMPARISON: None FINDINGS/IMPRESSION: Retrograde urethrogram was performed. Initial imaging demonstrates stricture in the region of the bul bar urethra. Subsequent imaging demonstrates area of contrast outside of the area of stricturing which could be related to interval treatment and extravasation of contrast. Clinical correlation hermila mmended. Subsequent images demonstrates a catheter within the urinary bladder with what appears to be needle and guidewire overlying the distended normal-appearing urinary bladder. Correlation with in traoperative findings is recommended.
[2020-08-02] MEDS ORDERED: Oxybutynin 5 MG TAB ONE (10:05)
--- NOTE | 2020-08-02 10:40 | OP ---
DATE OF PROCEDURE: 08/02/2020 PREOPERATIVE DIAGNOSIS: Urethral stricture. POSTOPERATIVE DIAGNOSIS: Bulbar urethral stricture. PROCEDURES PERFORMED: Retrograde and antegrade cystourethroscopy, retrograde urethrogram, suprapubic tube placement. ANESTHESIA: General. COMPLICATIONS: None. ESTIMATED BLOOD LOSS: Minimal. DESCRIPTION OF PROCEDURE: After informed consent, the patient was taken to the operating room, transferred to the table under his own power. Anesthesia was established. A time-out was performed, showing the correct patient, site, and procedure. Preoperative antibiotics were administered. He was prepped and draped in the supine position with a bump under his left side. I began by performing a retrograde urethrogram with a catheter tip syringe filling the urethra with contrast noting good caliber of the distal bulbar urethra; however, this quickly transition to clearly scarred area from the mid bulbar urethra near the level of the sphincter/membranous urethra. I then inserted the flexible cystoscope, noting normal course and caliber of the urethra down to the mid bulbar urethra, at which point, he has a large false passage. The normal urethra was actually posterior and so I followed this, noting that the strictured areas about 1.5 cm possibly approaching 2 cm in length. He has about 1 cm of normal urethra from the end of the scarred tissue to the urethral sphincter. His prostate was normal and nonobstructing. The bladder was then entered and systematically examined, noting no mucosal abnormalities. He does have mild trabeculation throughout. Both ureters were normal in appearance. A spot two fingerbreadths above the pubic symphysis in the midline was identified and infiltrated with 20 mL of local anesthetic. A small incision was made and then a spinal needle passed into the anterior aspect of the bladder under direct visualization with the cystoscope. A wire was passed through this and noted to be in good position with the cystoscope. I then passed the NephroMax balloon, inflated this to completion and I was able to pass the access sheath over the balloon until it was noted to be in good position again with the cystoscope. The balloon was deflated and removed over the wire. The cystoscope was then removed and passed through the access sheath into the bladder. Antegrade cystoscopy was performed, again noting similar findings of about 1 cm from the sphincter to the stricture and total length 1.5 to 2 cm of the stricture. The scope was then withdrawn and a 20-[place] suprapubic tube placed. 10 mL were instilled in the balloon. The access sheath was cut off. Proper placement was confirmed cystoscopically. The incision was closed around the catheter with 2-0 chromic and then a 3-0 nylon was used as a drain stitch. The suprapubic site was dressed with gauze and tape. The catheter was draining well and connected to bag drainage. The patient was then awoken from anesthesia, transferred back to his hospital bed, and taken to PACU in stable condition, where he will discharge home upon recovery. Job ID: [id number]
== END 2020-08-02 11:35 | disposition home or self-care (01) ==
LOC: SDC 07:02
PROVIDERS: ATTEND Urology
PROC: BT1DZZZ Fluoroscopy of Right Kidney, Ureter and Bladder (ICD-10-PCS; principal; 2020-08-02)
PROC: 0T9B30Z Drainage of Bladder with Drainage Device, Percutaneous Approach (ICD-10-PCS; principal; 2020-08-02)
DX: N35.011 Post-traumatic bulbous urethral stricture (principal); Z88.5 Allergy status to narcotic agent
CPT/HCPCS: 74420; J0690; J1100; J1885; J2250; J2405; J2704; J3010; S0020

== ENCOUNTER 2020-08-23 05:59 | Day surgery (SDC) | payer BC ==
[2020-08-22 09:56] VITALS: BMI 32.0
[2020-08-23] MEDS ORDERED: Methylene Blue 50 MG/10 ML AMPUL ONE (06:52)
[2020-08-23] MEDS ORDERED: XYLOCAINE 2%-EPI 1:100,000 20 ML VIAL ONE (06:52)
[2020-08-23] MEDS ORDERED: Bupivacaine PF 0.5% 30 ML VIAL ONE (06:52)
[2020-08-23] MEDS ORDERED: Bupivacaine 0.25% HCL 30 ML VIAL ONE (06:52)
[2020-08-23] MEDS ORDERED: HYDROmorphone 0.5 MG/0.5 ML SYRINGE ONE (07:37)
[2020-08-23] MEDS ORDERED: Fentanyl 100 MCG/2 ML VIAL ONE ×3 (07:37→11:24)
[2020-08-23] MEDS ORDERED: Ketorolac Tromethamine 30 MG/ML VIAL ONE ×2 (10:25→11:31)
[2020-08-23] MEDS ORDERED: Ondansetron PF 4 MG/2 ML Vial ONE (11:31)
[2020-08-23] MEDS ORDERED: Dexamethasone 20 MG/5 ML VIAL ONE (11:31)
[2020-08-23] MEDS ORDERED: ePHEDrine 50 MG/ML VIAL ONE (11:31)
[2020-08-23] MEDS ORDERED: PROPOFOL 200 MG/20 ML VIAL ONE (11:31)
[2020-08-23] MEDS ORDERED: Lidocaine 1% PF 5 ML VIAL ONE (11:31)
--- NOTE | 2020-08-23 11:42 | OP ---
DATE OF PROCEDURE: 08/23/2020 PREOPERATIVE DIAGNOSIS: Bulbar urethral stricture POSTOPERATIVE DIAGNOSIS: Bulbar urethral stricture PROCEDURE: One stage anastomotic urethroplasty, exchange of suprapubic tube. ANESTHESIA: General. COMPLICATIONS: None. BLOOD LOSS: 500 mL. SPECIMEN: Urethral stricture. DESCRIPTION OF PROCEDURE: After informed consent, the patient was taken to the operating room, transferred to the table under his own power. Anesthesia was established. A time-out was performed showing correct patient, site, and procedure. Preoperative antibiotics were administered. He was prepped and draped in the lithotomy position. I began by exchanging his suprapubic tube with a new 20-[place] catheter. This was irrigated and noted to be in good position. 10 mL were instilled in the balloon. I then made a perineal incision, which was carried through the subcutaneous tissues and muscle layer to the urethra with electrocautery. A [place] retractor was deployed. The urethra was dissected circumferentially back to the very proximal bulbar urethra. There was a fair amount of difficulty in the area that had previously been damaged with a misplaced catheter leading to scrotal abscess. Once the urethra was adequately dissected, a 24-[place] sound was passed down to the area of scarring where it would no longer pass and so the urethra was transected at this point. The sound was passed antegrade from the operative field through the distal part of the urethra without issue. The urethra was trimmed back until I reach normal caliber urethra. The total length excised was about 1.5 cm. The urethra was widely patent at this point with 24-[place] sound passing easily. The urethra was then spatulated dorsally in a proximal aspect and ventrally at the distal aspect. A dorsal portion of the anastomosis was performed in an interrupted fashion with 4-0 Vicryl suture. Once I reached the lateral aspect, we began closing in two layers, 1st closing the mucosa again with 4-0 Vicryl and then finally running the corpora cavernosa over top with 3-0 Vicryl. Before completing the mucosa, the [place] catheter was passed without difficulty with 10 mL instilled in the balloon. The muscle was then closed back over the urethra and subcutaneous tissues closed in three layers. Skin was closed in a running horizontal mattress fashion with Monocryl suture before being dressed with Dermabond. The [place] catheter in his penis was taped to the suprapubic area for more anatomic lie. The urethral catheter was plugged and the suprapubic tube placed to bag drainage. He is awoken from anesthesia, transferred back to his hospital bed and taken back in stable condition, where he will discharge home upon recovery. Job ID: [id number]
[2020-08-23] MEDS ORDERED: HYDROcodone/Acetaminophen 5/325 mg Tablet ONE (12:03)
== END 2020-08-23 13:16 | disposition home or self-care (01) ==
LOC: SDC 05:59
PROVIDERS: ATTEND Urology
PROC: 0TQD0ZZ Repair Urethra, Open Approach (ICD-10-PCS; principal; 2020-08-23)
PROC: 0T2BX0Z Change Drainage Device in Bladder, External Approach (ICD-10-PCS; principal; 2020-08-23)
DX: N35.011 Post-traumatic bulbous urethral stricture (principal); Z87.891 Personal history of nicotine dependence; Z88.5 Allergy status to narcotic agent
CPT/HCPCS: 88305; J0690; J1100; J1170; J1885; J2405; J2704; J3010; J3490; Q9968; S0020

== ENCOUNTER 2024-06-08 12:43 | Inpatient (IN) | payer BC, SELFPAY ==
[2024-06-08 13:45] LABS: #Basophils 0.03 10x3/uL (0.0-0.2); %Basophils 0.4 % (0.0-1.0); %Eosinophils 1.8 % (0.0-10.0); %Lymphocytes 22.5 % (21.0-51.0); %Monocytes 6.6 % (0.0-10.0); %Neutrophils 68.5 % (42.0-75.0); Hematocrit 45.1 % (42.0-52.0); Hemoglobin 15.3 g/dL (14.0-18.0); Mean Corpuscular HGB CONC 33.9 g/dL (32.0-36.0); Mean Corpuscular Volume 88.4 fL (78.0-98.0); Platelet Count 247 10x3/uL (130-400); RBC Distribution Width 13.4 % (11.5-14.5)
[2024-06-08 14:04] LABS: ALT (SGPT) 49 U/L (8-55); AST (SGOT) 37 U/L (5-34); Albumin 3.8 g/dL (3.5-5.0); Alkaline Phosphatase 57 U/L (40-110); Anion Gap 13 mmol/L (10-20); BUN (Urea Nitrogen) 10 mg/dL (8.9-20.6); Bilirubin, Total 0.5 mg/dL (0.2-1.2); Calc. Creatinine Clearance 0 mL/min (70-130); Calcium 8.6 mg/dL (7.8-10.44); Carbon Dioxide 21 mmol/L (22-29); Chloride 106 mmol/L (98-107); Estimated GFR 95; Glucose 95 mg/dL (70-105); Potassium 4.6 mmol/L (3.5-5.1); Protein, Total 6.8 g/dL (6.0-8.3); Sodium 135 mmol/L (136-145)
[2024-06-08 14:06] LABS: Troponin I 0.103 ng/mL (< 0.028)
[2024-06-08] MEDS ORDERED: Enoxaparin 30 MG (0.3 mL) SYRINGE ONE (14:57)
[2024-06-08] MEDS ORDERED: Aspirin Chewable 81 MG TAB ONE (14:57)
[2024-06-08] MEDS ORDERED: Enoxaparin 100 MG (1 mL) SYRINGE ONE (14:57)
[2024-06-08 15:36] LABS: Troponin I 0.143 ng/mL (< 0.028)
[2024-06-08] MEDS ORDERED: Acetaminophen 650 MG Suppository PR PRN (16:16)
[2024-06-08] MEDS ORDERED: Ondansetron ODT 4 MG TAB PO PRN (16:16)
[2024-06-08] MEDS ORDERED: Senokot S 8.6-50 MG TAB PO PRN (16:16)
[2024-06-08] MEDS: Pantoprazole DR 40 MG TAB PO SCH (16:45)
[2024-06-08] MEDS: Acetaminophen 325 MG TAB PO PRN (16:45)
[2024-06-08 18:15] VITALS: BMI 33.5
[2024-06-08 19:04] LABS: Magnesium 1.9 mg/dL (1.6-2.6)
[2024-06-08 19:10] LABS: Troponin I 0.147 ng/mL (< 0.028)
[2024-06-08] MEDS: Magnesium 2 GM/50 ML(in water) 2 GM in Premix 1 BAG IVPB SCH (20:33)
[2024-06-09 04:35] LABS: #Basophils 0.05 10x3/uL (0.0-0.2); %Basophils 0.4 % (0.0-1.0); %Eosinophils 1.2 % (0.0-10.0); %Monocytes 7.5 % (0.0-10.0); %Neutrophils 72.6 % (42.0-75.0); Hematocrit 45.1 % (42.0-52.0); Mean Corpuscular HGB CONC 33.3 g/dL (32.0-36.0); Mean Corpuscular Hemoglobin 29.5 pg (27.0-31.0); Mean Corpuscular Volume 88.6 fL (78.0-98.0); Mean Platelet Volume 11.1 fL (7.4-10.4); Platelet Count 243 10x3/uL (130-400); RBC Distribution Width 13.5 % (11.5-14.5); Red Blood Cell (RBC) Count 5.09 mill/uL (4.70-6.10)
[2024-06-09 04:47] LABS: Anion Gap 13 mmol/L (10-20); BUN (Urea Nitrogen) 9 mg/dL (8.9-20.6); Calc. Creatinine Clearance 189 mL/min (70-130); Calcium 8.6 mg/dL (7.8-10.44); Carbon Dioxide 23 mmol/L (22-29); Chloride 107 mmol/L (98-107); Estimated GFR 114; Glucose 101 mg/dL (70-105); Potassium 3.9 mmol/L (3.5-5.1); Sodium 139 mmol/L (136-145)
[2024-06-09] MEDS: Aspirin 81 mg Enteric Coated Tablet PO SCH (08:27)
[2024-06-09] MEDS: Pantoprazole DR 40 MG TAB PO SCH (08:27)
[2024-06-09] MEDS ORDERED: Empagliflozin 10 MG TAB PO SCH (15:00)
[2024-06-09] MEDS ORDERED: Communication Order-Pharmacy FS SCH (15:00)
[2024-06-09 16:01] LABS: Troponin I 0.125 ng/mL (< 0.028)
[2024-06-09] MEDS: Dapagliflozin Propanediol 10 MG TAB PO SCH (16:46)
[2024-06-09] MEDS: Sacubitril 24MG/Valsartan 26 MG TAB PO SCH (20:27)
[2024-06-10] MEDS ORDERED: Nitroglycerin 50 MG/250 ML BOT ONE (06:52)
[2024-06-10] MEDS ORDERED: Midazolam HCl 2 mg/2 ml Vial ONE (07:50)
[2024-06-10] MEDS ORDERED: Empagliflozin 10 MG TAB PO SCH (09:00)
[2024-06-10] MEDS ORDERED: Dapagliflozin Propanediol 10 MG TAB PO SCH (09:00)
[2024-06-10] MEDS ORDERED: Heparin 1,000 UNITS/500ML (ARTLINE) ONE (14:42)
[2024-06-10] MEDS ORDERED: Heparin 10,000 UNITS/ 10 ML VIAL ONE (14:46)
[2024-06-10] MEDS ORDERED: Carvedilol 3.125 MG TAB ONE (17:23)
[2024-06-11] MEDS ORDERED: Carvedilol 3.125 MG TAB ONE (08:14)
[2024-06-12 00:19] VITALS: BP 118/78; TEMP 97.6
== END 2024-06-11 14:06 | disposition home or self-care (01) | DRG 287 ==
LOC: ERS 12:43 → OBS 16:19 → OBSVTOIN 06-09 14:47
PROVIDERS: ADMIT Internal Medicine; ATTEND Student in an Organized Health Care Education/Training Program
PROC: 4A023N7 Measurement of Cardiac Sampling and Pressure, Left Heart, Percutaneous Approach (ICD-10-PCS; principal; 2024-06-10)
PROC: B2111ZZ Fluoroscopy of Multiple Coronary Arteries using Low Osmolar Contrast (ICD-10-PCS; 2024-06-10)
PROC: B2151ZZ Fluoroscopy of Left Heart using Low Osmolar Contrast (ICD-10-PCS; 2024-06-10)
DX: R07.89 Other chest pain (principal); G89.18 Other acute postprocedural pain; Z79.899 Other long term (current) drug therapy; Z79.82 Long term (current) use of aspirin; G47.33 Obstructive sleep apnea (adult) (pediatric); E78.5 Hyperlipidemia, unspecified; F41.9 Anxiety disorder, unspecified; K21.9 Gastro-esophageal reflux disease without esophagitis; Z88.8 Allergy status to other drugs, medicaments and biological substances; Z98.890 Other specified postprocedural states; Z87.891 Personal history of nicotine dependence
CPT/HCPCS: 36415; 36416; 71045; 80048; 80053; 83735; 84484; 85025; 93005; 93010; 93306; 93458; 96374; 99152; 99153; C1769; C1887; G0378; J1644; J1650; J2250; J3475